=== PATIENT | male | born 1960 | race Caucasian/White ===

== ENCOUNTER → 2024-02-12 06:21 | Day surgery (SDC) | payer OTHER, SELFPAY | LOC: GI 06:21 | PROVIDERS: ATTENDING PHYSICIAN Internal Medicine Gastroenterology | DX: Z12.11 Encounter for screening for malignant neoplasm of colon (principal); K64.8 Other hemorrhoids; D12.5 Benign neoplasm of sigmoid colon; D12.8 Benign neoplasm of rectum; D12.3 Benign neoplasm of transverse colon | CPT/HCPCS: 45385; 88305 ==